=== PATIENT | male | born 1960 | race Caucasian/White ===

== ENCOUNTER 2020-12-16 07:03 | Day surgery (SDC) | payer BC ==
[~2020-12-16] VITALS: Ht 172.7 cm; Wt 86.0 kg
[~2020-12-16 07:03] MED LIST: ATOR20 PO; Aspir 8181 MG PO; BASAGLAR K100 UNIT/1 SC; JARDIANCE25 MG PO; METFORMIN ER1000 M1 PO; TOPROL XL25 MG PO; TRULICITY1.5 MG/0.1 SC
[2020-12-16] MEDS ORDERED: Crestor20 MG PO (07:34)
--- NOTE | 2020-12-16 10:20 | NUR ---
TO RECOVERY ROOM VIA RECLINER. TR BAND INTACT. SLIGHT BLEEDING AT SITE.
--- NOTE | 2020-12-16 10:35 | NUR ---
SITE ASSESSED BY PEGGY STRONG. ADDITIONAL TR BAND APPLIED AND 12 CC
--- NOTE | 2020-12-16 10:45 | NUR ---
TR BAND X 2 REMOVED. MAUAL PRESSURE APPLIED. TR BAND X2 REPOSITIONED 12 CC AIR IN DISTAL BAND. 100 AIR INSTILLED PROXIMAL BAND. NO FURTHER BLEEDING AT SITE. BLEEDING AT VERY DISTAL WRIST DUE TO MULTPILE ATTEMPTS. 2X2 AND COBAN APPLIED.
--- NOTE | 2020-12-16 11:36 | NUR ---
AMBULATED TO BATHROOM. PT TOLERATED WELL. NO BLEEDING AT TR BAND SITE.
--- NOTE | 2020-12-16 12:15 | NUR ---
PT FINISHED EATING LUNCH. DENIES PAIN OR NEEDS. VSS. RIGHT RADIAL SITE SOFT, BRUISING NOTED.
--- NOTE | 2020-12-16 12:32 | NUR ---
TR BAND X2 INTACT. NO BLEEDING AT SITE. COBAN TO RIGHT WRIST. IV TO SALINE LOC. 10 ML FLUSH. DENIES PAIN.
--- NOTE | 2020-12-16 13:35 | NUR ---
PT ARRIVED TO PCU 15 FROM [facility] VIA W/C. PT A/O X4, INDEPENDENT WITH ADL'S IN ROOM. BRACE TO RT WRIST, PT KNOWS NOT TO USE, VSS, DENIES PAIN AT THIS TIME. BED IN LOWEST POSITION, CALL [facility] IN REACH, WILL CONTINUE TO MONITOR.
--- NOTE | 2020-12-17 05:14 | NUR ---
SHIFT SUMMARY NO ACUTE CHANGES THIS SHIFT. VSS. AXO. ON RA. IN SR. STARTED SHIFT WITH PRESSURE DRESSING TO R WRIST. TAKEN OFF AT 1999 AND NO CHANGES SINCE. NO HEMAOTOMA NOTED. SITE PRESENTS STABLE. REMAINS IN ARMBOARD. PT INDEPENDENT IN ROOM AND IS CONSCIENCEOUS OF WRIST. USES CASLL LIGHT APPROPRIATELY. WILL CONTINUE TO MONITOR UNTIL SHIFT CHANGE.
[2020-12-17] MEDS ORDERED: CLOP75 PO (07:47)
--- NOTE | 2020-12-17 09:28 | NUR ---
PT DISHCARGE PT PROVIDED WITH DISCHARGE INSTRUCTION PER PHYSICIAN. PT VERBALIZED UNDERSTANDING FOR POST ANGIO CARE. PT VERBALIZED UNDERSTANDING OF NEW MEDICATION AND MEDICATION CHANGES. AT BEDSIDE. PT AMBULATED WITH TO VEHICLE AFTER DISCHARGE PAPERWORK SIGNED. IV AND TELE REMOVED PRIOR TO DISCHARGE.
== END 2020-12-17 08:40 | disposition home or self-care (01) ==
LOC: MHTC 07:03 → PCU 13:21 → ENPENDDIS 12-17 07:33 → MHTC 12-17 08:40
DX: I25.10 Atherosclerotic heart disease of native coronary artery without angina pectoris (principal); I50.9 Heart failure, unspecified; E11.9 Type 2 diabetes mellitus without complications; E78.5 Hyperlipidemia, unspecified; N52.9 Male erectile dysfunction, unspecified; Z79.4 Long term (current) use of insulin; Z79.82 Long term (current) use of aspirin; Z82.49 Family history of ischemic heart disease and other diseases of the circulatory system
CPT/HCPCS: 82947; 85347; 93458; 99152; 99153; A9270; C1725; C1769; C1874; C1887; C1894; C9600; J1644; J2250; J3010; J7030; J7040; Q9967

== ENCOUNTER 2022-05-28 08:05 | Day surgery (SDC) | payer BC ==
[~2022-05-28] VITALS: Ht 172.7 cm; Wt 97.8 kg
[~2022-05-28 08:05] MED LIST changes: +CLOP75 PO; +Crestor20 MG PO
== END 2022-05-28 11:10 | disposition home or self-care (01) ==
LOC: ORSCSDS 08:05
PROVIDERS: Internal Medicine Gastroenterology
PROC: 0DBL8ZX Excision of Transverse Colon, Via Natural or Artificial Opening Endoscopic, Diagnostic (ICD-10-PCS; principal; 2022-05-28 09:30)
PROC: 0DBK8ZX Excision of Ascending Colon, Via Natural or Artificial Opening Endoscopic, Diagnostic (ICD-10-PCS; principal; 2022-05-28 09:30)
DX: Z12.11 Encounter for screening for malignant neoplasm of colon (principal); Z86.010 Personal history of colon polyps; Z80.0 Family history of malignant neoplasm of digestive organs; D12.3 Benign neoplasm of transverse colon; D12.2 Benign neoplasm of ascending colon; E78.5 Hyperlipidemia, unspecified; E11.319 Type 2 diabetes mellitus with unspecified diabetic retinopathy without macular edema; Z79.02 Long term (current) use of antithrombotics/antiplatelets; Z79.4 Long term (current) use of insulin; Z79.899 Other long term (current) drug therapy
CPT/HCPCS: 82947; 88305; J2704; J7120

== ENCOUNTER → 2023-06-18 | Outpatient (CLI) | payer MEDICARE, BC ==
[2023-06-18 08:54] LABS: BASOPHILS ABSOLUTE AUTO 0.02 K/mm3 (0.00-0.23); BASOPHILS PERCENT AUTO 0 % (0-2); EOSINOPHILS ABSOLUTE AUTO 0.18 K/mm3 (0.00-0.68); EOSINOPHILS PERCENT AUTO 4 % (0-6); Hematocrit 39.6 % (37.0-53.0); Hemoglobin 13.2 g/dL (13.5-17.5); IMMATURE GRAN ABSOLUTE AUTO 0.01 K/mm3 (0.00-0.10); IMMATURE GRAN PERCENT AUTO 0 % (0-1); LYMPHOCYTES ABSOLUTE AUTO 1.68 K/mm3 (0.84-5.20); LYMPHOCYTES PERCENT AUTO 32 % (21-46); MONOCYTES ABSOLUTE AUTO 0.48 K/mm3 (0.16-1.47); MONOCYTES PERCENT AUTO 9 % (4-13); Mean Corpuscular HGB 30.6 pg (26.0-34.0); Mean Corpuscular HGB Conc 33.3 g/dL (31.5-36.5); Mean Corpuscular Volume 92 fL (80-100); Mean Platelet Volume 9.2 fL (9.1-12.4); NEUTROPHILS ABSOLUTE AUTO 2.83 K/mm3 (1.96-9.15); NEUTROPHILS PERCENT AUTO 54 % (41-73); Platelet Count 226 K/mm3 (150-400); RDW Coefficient Variation 14.3 % (11.7-14.2); Red Blood Cell Count 4.32 M/mm3 (4.30-5.90)
[2023-06-18 09:56] LABS: Alanine Aminotransfer (ALT/SGP 28 U/L (12-78); Albumin, Blood 3.8 g/dL (3.4-5.0); Albumin/Globulin Ratio 1.2 (0.8-1.8); Alk Phos 70 U/L (50-136); Anion Gap 3 mmol/L (6-16); Aspartate Aminotrans (AST/SGOT 22 U/L (12-37); Bilirubin, Total 0.5 mg/dL (0.1-1.0); Blood Urea Nitrogen 21 mg/dL (8-24); Bun/Creatinine Ratio 18.1 (12.0-20.0); CHOL/HDL RATIO 2.4; CO2, Blood 27 mmol/L (21-32); Calcium, Blood 9.2 mg/dL (8.5-10.1); Chloride, Blood 111 mmol/L (98-108); Cholesterol 124 mg/dL (50-200); Creatinine, Blood 1.16 mg/dL (0.60-1.20); Globulin, Blood 3.2 g/dL (2.2-4.0); Glomerular Filtration Rate 70 (60-); Glucose, Blood 175 mg/dL (70-99); HDL Cholesterol 52 mg/dL (>39); Low Density Lipoprotein Chol 53 mg/dL (0-110); Potassium, Blood 4.3 mmol/L (3.5-5.5); Sodium, Blood 141 mmol/L (136-145); Triglycerides 95 mg/dL (30-160); Very Low Density Lipoprot Chol 19 mg/dL (6-32)
== END | disposition home or self-care (01) ==
LOC: LAB 07:22 → LAB SHORT 07:22
PROVIDERS: Nurse Practitioner Family
DX: E11.9 Type 2 diabetes mellitus without complications (principal)
CPT/HCPCS: 36415; 80053; 80061; 83036; 85025

== ENCOUNTER 2023-07-02 05:40 | Emergency (ER) | payer MEDICARE, BC ==
[~2023-07-02] VITALS: Ht 172.7 cm; Wt 81.7 kg
[2023-07-02 06:42] LABS: BASOPHILS ABSOLUTE AUTO 0.03 K/mm3 (0.00-0.23); BASOPHILS PERCENT AUTO 0 % (0-2); EOSINOPHILS ABSOLUTE AUTO 0.18 K/mm3 (0.00-0.68); EOSINOPHILS PERCENT AUTO 2 % (0-6); Hematocrit 38.1 % (37.0-53.0); Hemoglobin 12.8 g/dL (13.5-17.5); IMMATURE GRAN ABSOLUTE AUTO 0.01 K/mm3 (0.00-0.10); IMMATURE GRAN PERCENT AUTO 0 % (0-1); LYMPHOCYTES ABSOLUTE AUTO 1.45 K/mm3 (0.84-5.20); LYMPHOCYTES PERCENT AUTO 18 % (21-46); MONOCYTES ABSOLUTE AUTO 0.46 K/mm3 (0.16-1.47); MONOCYTES PERCENT AUTO 6 % (4-13); Mean Corpuscular HGB 30.5 pg (26.0-34.0); Mean Corpuscular HGB Conc 33.6 g/dL (31.5-36.5); Mean Corpuscular Volume 91 fL (80-100); Mean Platelet Volume 9.1 fL (9.1-12.4); NEUTROPHILS ABSOLUTE AUTO 5.85 K/mm3 (1.96-9.15); NEUTROPHILS PERCENT AUTO 73 % (41-73); Platelet Count 229 K/mm3 (150-400); RDW Coefficient Variation 14.2 % (11.7-14.2); RDW Standard Deviation 47.5 fL (35.1-46.3); Red Blood Cell Count 4.19 M/mm3 (4.30-5.90); White Blood Cell Count 7.98 K/mm3 (4.00-11.30)
[2023-07-02 06:53] LABS: Albumin, Blood 3.6 g/dL (3.4-5.0); Albumin/Globulin Ratio 1.1 (0.8-1.8); Bilirubin, Total 0.5 mg/dL (0.1-1.0); Bun/Creatinine Ratio 20.5 (12.0-20.0); Creatinine, Blood 1.22 mg/dL (0.60-1.20); Globulin, Blood 3.2 g/dL (2.2-4.0); Magnesium, Blood 2.1 mg/dL (1.6-2.4); Total Protein, Blood 6.8 g/dL (6.4-8.2)
[2023-07-02 09:28] LABS: Source, Urine Clean Catch
[2023-07-02 09:33] LABS: Appearance, Urine Clear (Clear); Bilirubin, Urine Neg (Neg); Blood, Urine 5+ (Neg); Color, Urine Yellow (P-Yellow); Glucose Qualitative, Urine 4+ (Neg); Ketones, Urine 2+ (Neg); Leukocyte Esterase, Urine Neg (Neg); Nitrite, Urine Neg (Neg); Protein, Urine 1+ (Neg); Urobilinogen, Urine NORM (Normal)
[2023-07-02 09:46] LABS: Bacteria Not Seen /hpf; Squamous Epithelial Cells Not Seen /hpf (Few); White Blood Cells, Urine Not Seen /hpf (0-5)
[2023-07-02] MEDS ORDERED: ONDA4ODT MM (10:09)
[2023-07-02 10:45] VITALS: BP 103/70
== END 2023-07-02 10:50 | disposition home or self-care (01) ==
LOC: ER 05:40
PROVIDERS: Student in an Organized Health Care Education/Training Program
DX: R10.32 Left lower quadrant pain (principal); R31.9 Hematuria, unspecified; Z79.899 Other long term (current) drug therapy; Z79.82 Long term (current) use of aspirin; Z79.4 Long term (current) use of insulin; Z79.84 Long term (current) use of oral hypoglycemic drugs; E11.9 Type 2 diabetes mellitus without complications
CPT/HCPCS: 74177; 80053; 81001; 83735; 85025; 96361; 96374-59; 96375; 99284-25; J1885; J2405; J7030; Q9967

== ENCOUNTER 2024-10-24 09:46 | Emergency (ER) | payer MEDICARE, BC ==
[~2024-10-24] VITALS: Ht 165.1 cm; Wt 70.3 kg
[~2024-10-24 09:46] MED LIST changes: +ONDA4ODT MM
[2024-10-24 09:58] VITALS: BP 121/67
[2024-10-24] MEDS ORDERED: Diphth,Pertuss(Acell),Tet Vac 0.5 ML VIAL IM ONE (10:05)
[2024-10-24 10:31] LABS: BASOPHILS ABSOLUTE AUTO 0.03 K/mm3 (0.00-0.23); BASOPHILS PERCENT AUTO 0 % (0-2); EOSINOPHILS ABSOLUTE AUTO 0.28 K/mm3 (0.00-0.68); EOSINOPHILS PERCENT AUTO 4 % (0-6); Hematocrit 40.7 % (37.0-53.0); Hemoglobin 13.8 g/dL (13.5-17.5); IMMATURE GRAN ABSOLUTE AUTO 0.01 K/mm3 (0.00-0.10); IMMATURE GRAN PERCENT AUTO 0 % (0-1); LYMPHOCYTES ABSOLUTE AUTO 1.73 K/mm3 (0.84-5.20); LYMPHOCYTES PERCENT AUTO 26 % (21-46); MONOCYTES ABSOLUTE AUTO 0.48 K/mm3 (0.16-1.47); MONOCYTES PERCENT AUTO 7 % (4-13); Mean Corpuscular HGB 30.5 pg (26.0-34.0); Mean Corpuscular HGB Conc 33.9 g/dL (31.5-36.5); Mean Corpuscular Volume 90 fL (80-100); Mean Platelet Volume 8.9 fL (9.1-12.4); NEUTROPHILS PERCENT AUTO 63 % (41-73); Platelet Count 271 K/mm3 (150-400); RDW Coefficient Variation 14.2 % (11.7-14.2); Red Blood Cell Count 4.52 M/mm3 (4.30-5.90); White Blood Cell Count 6.73 K/mm3 (4.00-11.30)
[2024-10-24 10:51] LABS: Albumin, Blood 3.7 g/dL (3.4-5.0); Albumin/Globulin Ratio 1.1 (0.8-1.8); Bilirubin, Total 0.4 mg/dL (0.1-1.0); Bun/Creatinine Ratio 23.8 (12.0-20.0); Calcium, Blood 9.6 mg/dL (8.5-10.1); Creatinine, Blood 1.26 mg/dL (0.60-1.20); Globulin, Blood 3.5 g/dL (2.2-4.0); Potassium, Blood 4.6 mmol/L (3.5-5.5); Total Protein, Blood 7.2 g/dL (6.4-8.2)
[2024-10-24] MEDS ORDERED: AMOCLA875 PO (12:13)
== END 2024-10-24 12:37 | disposition home or self-care (01) ==
LOC: ER 09:46
PROVIDERS: Emergency Medicine
DX: L03.032 Cellulitis of left toe (principal); E11.9 Type 2 diabetes mellitus without complications; Z79.4 Long term (current) use of insulin; Z79.84 Long term (current) use of oral hypoglycemic drugs; Z79.82 Long term (current) use of aspirin; Z79.899 Other long term (current) drug therapy
CPT/HCPCS: 73620; 80053; 85025; 90471; 90715; 99284-25

== ENCOUNTER 2025-09-10 22:30 | Observation (INO) | payer MEDICARE, BC ==
[~2025-09-10] VITALS: Ht 172.7 cm; Wt 79.2 kg
[~2025-09-10 22:30] MED LIST changes: +AMOCLA875 PO; -Crestor20 MG PO; +Crestor40 MG PO
[2025-09-10] MEDS ORDERED: Ondansetron HCl 2 MG / ML 2ML Vial IV PRN ×2 (22:50→23:45)
[2025-09-10 22:54] LABS: BASOPHILS ABSOLUTE AUTO 0.02 K/mm3 (0.00-0.23); BASOPHILS PERCENT AUTO 0 % (0-2); EOSINOPHILS ABSOLUTE AUTO 0.27 K/mm3 (0.00-0.68); EOSINOPHILS PERCENT AUTO 4 % (0-6); Hematocrit 41.1 % (37.0-53.0); Hemoglobin 13.7 g/dL (13.5-17.5); IMMATURE GRAN ABSOLUTE AUTO 0.01 K/mm3 (0.00-0.10); IMMATURE GRAN PERCENT AUTO 0 % (0-1); LYMPHOCYTES ABSOLUTE AUTO 2.14 K/mm3 (0.84-5.20); LYMPHOCYTES PERCENT AUTO 29 % (21-46); MONOCYTES ABSOLUTE AUTO 0.58 K/mm3 (0.16-1.47); MONOCYTES PERCENT AUTO 8 % (4-13); Mean Corpuscular HGB Conc 33.3 g/dL (31.5-36.5); Mean Corpuscular Volume 96 fL (80-100); NEUTROPHILS ABSOLUTE AUTO 4.47 K/mm3 (1.96-9.15); NEUTROPHILS PERCENT AUTO 60 % (41-73); NRBC ABSOLUTE 0.00 K/mm3 (0.00-0.02); NRBC Auto 0.0 /100 WBC (0.0-0.2); Platelet Count 245 K/mm3 (150-400); RDW Coefficient Variation 14.2 % (11.7-14.2); RDW Standard Deviation 49.5 fL (35.1-46.3)
[2025-09-10 23:07] LABS: Alanine Aminotransfer (ALT/SGP 34.0 U/L (12-78); Albumin, Blood 3.5 g/dL (3.4-5.0); Albumin/Globulin Ratio 1.0 (0.8-1.8); Anion Gap 6.0 mmol/L (3-11); Aspartate Aminotrans (AST/SGOT 20.0 U/L (12-37); Bilirubin, Total 0.4 mg/dL (0.1-1.0); Blood Urea Nitrogen 28.0 mg/dL (8-24); CO2, Blood 32.0 mmol/L (21-32); Calcium, Blood 9.1 mg/dL (8.5-10.1); Chloride, Blood 107.0 mmol/L (98-108); Creatinine, Blood 1.17 mg/dL (0.60-1.20); Globulin, Blood 3.4 g/dL (2.2-4.0); Glucose, Blood 164.0 mg/dL (70-99); Potassium, Blood 4.0 mmol/L (3.5-5.5); Sodium, Blood 141.0 mmol/L (136-145); Total Protein, Blood 6.9 g/dL (6.4-8.2)
[2025-09-10] MEDS ORDERED: Morphine Sulfate 4 MG/1 ML Injection IV ONE (23:35)
[2025-09-10] MEDS ORDERED: Morphine Sulfate 4 MG/1 ML Injection IV PRN (23:45)
[2025-09-10] MEDS ORDERED: Naloxone HCl 0.4MG / ML 1ML Vial IV PRN (23:45)
[2025-09-10] MEDS ORDERED: FLU VACC TS2025(65UP)/MF59C/PF 45 MCG/0.5 ML SYRINGE IM SCH (23:55)
[2025-09-11] MEDS ORDERED: METF500 PO (02:26)
[2025-09-11] MEDS ORDERED: OZEMPIC0.25 MG/02 SC (02:28)
[2025-09-11 03:25] VITALS: BP 122/72
[2025-09-11] MEDS ORDERED: METF500C PO (03:28)
[2025-09-11] MEDS ORDERED: NOVOLOG FL100 UNIT/3 SC (03:30)
[2025-09-11 04:13] LABS: BASOPHILS ABSOLUTE AUTO 0.02 K/mm3 (0.00-0.23); BASOPHILS PERCENT AUTO 0 % (0-2); EOSINOPHILS ABSOLUTE AUTO 0.13 K/mm3 (0.00-0.68); EOSINOPHILS PERCENT AUTO 2 % (0-6); Hematocrit 37.3 % (37.0-53.0); Hemoglobin 12.3 g/dL (13.5-17.5); IMMATURE GRAN ABSOLUTE AUTO 0.02 K/mm3 (0.00-0.10); IMMATURE GRAN PERCENT AUTO 0 % (0-1); LYMPHOCYTES ABSOLUTE AUTO 1.55 K/mm3 (0.84-5.20); LYMPHOCYTES PERCENT AUTO 21 % (21-46); MONOCYTES ABSOLUTE AUTO 0.48 K/mm3 (0.16-1.47); MONOCYTES PERCENT AUTO 6 % (4-13); Mean Corpuscular HGB Conc 33.0 g/dL (31.5-36.5); Mean Corpuscular Volume 96 fL (80-100); NEUTROPHILS ABSOLUTE AUTO 5.26 K/mm3 (1.96-9.15); NEUTROPHILS PERCENT AUTO 71 % (41-73); NRBC ABSOLUTE 0.00 K/mm3 (0.00-0.02); NRBC Auto 0.0 /100 WBC (0.0-0.2); Platelet Count 219 K/mm3 (150-400); RDW Coefficient Variation 14.2 % (11.7-14.2); RDW Standard Deviation 49.8 fL (35.1-46.3)
[2025-09-11 06:30] LABS: Alanine Aminotransfer (ALT/SGP 30.0 U/L (12-78); Albumin, Blood 3.2 g/dL (3.4-5.0); Albumin/Globulin Ratio 1.1 (0.8-1.8); Anion Gap 8.0 mmol/L (3-11); Aspartate Aminotrans (AST/SGOT 16.0 U/L (12-37); Bilirubin, Total 0.4 mg/dL (0.1-1.0); Blood Urea Nitrogen 26.0 mg/dL (8-24); CO2, Blood 28.0 mmol/L (21-32); Calcium, Blood 8.8 mg/dL (8.5-10.1); Chloride, Blood 109.0 mmol/L (98-108); Creatinine, Blood 1.15 mg/dL (0.60-1.20); Globulin, Blood 3.0 g/dL (2.2-4.0); Glucose, Blood 154.0 mg/dL (70-99); Magnesium, Blood 2.1 mg/dL (1.6-2.4); Potassium, Blood 4.5 mmol/L (3.5-5.5); Sodium, Blood 140.0 mmol/L (136-145); Total Protein, Blood 6.2 g/dL (6.4-8.2)
--- NOTE | 2025-09-11 06:49 | NUR ---
ADMIT NOTE/ SHIFT SUMMARY PATIENT ADMITTED FOR CHEST PAIN. ALERT AND ORIENTED X4. PATIENT INDEPENDENT IN HIS ROOM. IS AT BEDSIDE. NPO AT THIS TIME FOR STRESS TEST. VSS. NO ACUTE EVENTS. BED RAILS UP X2. CALL LIGHT WITHIN REACH. BED IN LOWEST POSITION FOR SAFETY.
[2025-09-11 07:49] VITALS: BP 123/76
[2025-09-11] MEDS ORDERED: Enoxaparin 40 MG/0.4 ML SYR SC SCH (09:00)
[2025-09-11 13:03] VITALS: BP 115/63
[2025-09-11] MEDS ORDERED: Aminophylline 250MG / 10ML 10 ML Vial ONE (13:35)
[2025-09-11 17:14] VITALS: BP 121/67
--- NOTE | 2025-09-11 17:45 | NUR ---
PATIENT DISCHARGED THIS EVENIING. REVIEWED MD FOLLOW UP APPOINTMENT. NO MED CHANGES. ALL QUESTIONS ANSWERED.
== END 2025-09-11 17:45 | disposition home or self-care (01) ==
LOC: ER 22:30 → ERHOLD 22:31 → MEDS 22:31 → ERHOLD 22:31 → MEDS 09-11 03:21
PROVIDERS: Student in an Organized Health Care Education/Training Program; ADMIT Student in an Organized Health Care Education/Training Program
DX: R07.2 Precordial pain (principal); I25.10 Atherosclerotic heart disease of native coronary artery without angina pectoris; E11.9 Type 2 diabetes mellitus without complications; Z79.82 Long term (current) use of aspirin; Z95.5 Presence of coronary angioplasty implant and graft; Z79.02 Long term (current) use of antithrombotics/antiplatelets; Z79.4 Long term (current) use of insulin; Z79.84 Long term (current) use of oral hypoglycemic drugs; Z79.899 Other long term (current) drug therapy
CPT/HCPCS: 36415; 71046; 78452; 80053; 82947; 83690; 83735; 84484; 85025; 93005; 93010; 93017; 96374; 96375; 99285-25; A9270; A9500; G0378; J0280; J2270; J2405; J2785